=== PATIENT | male | born 1980 | race Caucasian/White ===

== ENCOUNTER 2017-05-12 22:24 | Emergency (ER) | payer OTHER ==
[~2017-05-12] VITALS: Ht 154.9 cm; Wt 79.4 kg
[~2017-05-12 22:24] MED LIST: ANOTHER DIABETIC MED; BACTRIM DS 8001 TA1 PO; CEPHALEXIN500 M1 PO; CLARITIN10 MG PO; CLEOCIN150 MG PO; CLINDAMYCIN HC300 MG PO; CLINDAMYCIN150 MG PO; CORDROL20 MG PO; HUMALOG100 U/ML SC; HUMALOG100 UNIT/2 SQ; IBU800 MG PO; KEFLEX500 MG PO; LANTUS100 U/ML SC; LISINOPRIL10 MG PO; METFORMIN HCL1000 MG PO; METFORMIN500 MG PO; Metformin Hydr500 MG PO; NKHM PO; PERIDEX 480 ML480 ML PO; PHENERGAN W/DM120 ML PO; PRAVACHOL10 MG PO; PREDNICOT10 MG PO; TESSALON PERLE100 M1 PO; TRAMADOL HCL50 MG PO; TYLENOL W/CODEI1 TA2 PO; ULTRAM50 MG PO; VOLTAREN50 M1 PO; ZITHROMAX Z PA250 MG PO; ZOFRAN ODT4 MG SL; ZOFRAN4 MG PO; ZYRTEC10 M1 PO; [UNRECOGNIZED DRUG - REMARK]
[2017-05-12] MEDS ORDERED: CLINDAMYCIN HC300 MG PO (22:38)
[2017-05-12] MEDS ORDERED: ANAPROX DS550 MG PO (22:38)
== END 2017-05-12 22:42 | disposition home or self-care (01) ==
LOC: ED 22:24
DX: K08.89 Other specified disorders of teeth and supporting structures (principal); I10 Essential (primary) hypertension; F17.200 Nicotine dependence, unspecified, uncomplicated; Z88.0 Allergy status to penicillin; Z79.899 Other long term (current) drug therapy

== ENCOUNTER → 2017-06-14 | Outpatient (CLI) | payer OTHER ==
[~2017-06-14] MED LIST changes: +ANAPROX DS550 MG PO
[2017-06-15 07:07] LABS: HEPATITIS C VIRUS ANTIBODY >11.0 s/co (0.0-0.9)
== END | disposition home or self-care (01) ==
LOC: LAB 11:30
PROVIDERS: Family Medicine
DX: R94.5 Abnormal results of liver function studies (principal)

== ENCOUNTER 2017-08-29 12:57 | Emergency (ER) | payer OTHER ==
[~2017-08-29] VITALS: Wt 72.6 kg
[2017-08-29] MEDS ORDERED: CLINDAMYCIN HC300 MG PO (15:15)
== END 2017-08-29 15:29 | disposition home or self-care (01) ==
LOC: ED 12:57
DX: K04.7 Periapical abscess without sinus (principal); F17.200 Nicotine dependence, unspecified, uncomplicated; Z79.899 Other long term (current) drug therapy; Z88.0 Allergy status to penicillin

== ENCOUNTER 2018-05-24 21:29 | Inpatient (IN) | payer OTHER ==
[~2018-05-24] VITALS: Ht 180.3 cm; Wt 66.3 kg
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
[2018-05-24 21:30] VITALS: BP 156/107
[2018-05-24 21:39] LABS: BILIRUBIN NEGATIVE (NEGATIVE); BLOOD NEGATIVE (NEGATIVE); CLARITY CLEAR (CLEAR); COLOR YELLOW (YELLOW); GLUCOSE 3+ (NEGATIVE); KETONE NEGATIVE (NEGATIVE); LEUKO ESTERASE NEGATIVE (NEGATIVE); NITRITE NEGATIVE (NEGATIVE); PH 5.5 (5.0-9.0); SPECIFIC GRAVITY <= 1.005 (1.005-1.030); UROBILINOGEN 0.2 E.U./dl (0.2-1.0)
[2018-05-24 21:49] LABS: URINE AMPHETAMINES < 1000 (1000ng/ml); URINE BARBITURATES < 200 (200ng/ml); URINE BENZODIAZEPINES < 200 (200ng/ml); URINE CANNABINOIDS (THC) < 50 (50ng/ml); URINE COCAINE < 300 (300ng/ml); URINE METHADONE < 300 (300ng/ml); URINE OPIATES > 300 (300ng/ml)
[2018-05-24 21:51] LABS: BACTERIA TRACE; RBC 0-2 rbc/hpf (0-2)
[2018-05-24 21:52] LABS: URINE PHENCYCLIDINE < 25 (25ng/ml)
[2018-05-24 22:13] LABS: BASO % 0.2 % (0.0-1.0); EOS % 0.4 % (1.0-4.0); HEMATOCRIT 40.4 % (42.0-52.0); HEMOGLOBIN 13.7 g/dl (14.0-18.0); LYMPH # 1.4 10*3/uL (1.3-4.4); LYMPH % 13.6 % (27.0-41.0); MEAN CELL VOLUME 87.6 fl (80.0-94.0); MEAN CORPUSCULAR HGB 29.7 pg (27.0-31.0); MEAN CORPUSCULAR HGB CONC 33.9 g/dl (33.0-37.0); MEAN PLATELET VOLUME 9.5 fl (9.6-12.3); MONO # 1.2 10*3/uL (0.1-1.0); MONO % 11.6 % (3.0-9.0); NEUT # 7.7 10*3/uL (2.3-7.9); NEUT % 73.7 % (47.0-73.0); PLATELET COUNT AUTOMATED 185 10*3/uL (130-400); RED BLOOD COUNT 4.61 10*6/uL (4.50-5.90); RED CELL DISTRI WIDTH 13.1 % (0-14.5); WHITE BLOOD COUNT 10.4 10*3/uL (4.8-10.8)
[2018-05-24 22:17] LABS: ABG BASE EXCESS -1.7 mmol/L (-2.0-2.0); ABG HCO3 22.6 mmol/l (22-26); ABG O2 SATURATION 95.4 % (95-97); ARTERIAL BLOOD GAS PCO2 39.4 mmHg (35-45); ARTERIAL BLOOD GAS PH 7.378 (7.35-7.45); ARTERIAL BLOOD GAS PO2 84.4 mmHg (80-90)
[2018-05-24 22:23] LABS: ACT PARTIAL THROMBO TIME 21.3 SECONDS (20.8-31.5)
[2018-05-24 22:30] LABS: ALBUMIN 3.2 gm/dl (3.1-4.5); ALKALINE PHOSPHATASE 334 U/L (45-117); BUN 10 mg/dl (7-24); CHLORIDE 97 mmol/L (98-107); CREATININE 0.91 mg/dL (0.70-1.30); POTASSIUM 3.3 mmol/L (3.5-5.1); SGOT/AST 443 IU/L (3-35); SODIUM 132 mmol/L (136-145); TOTAL PROTEIN 8.1 gm/dL (6.4-8.2)
[2018-05-24 22:35] LABS: SGPT/ALT 1283 U/L (12-78); TROPONIN I < 0.015 ng/ml (<0.045)
[2018-05-24 22:38] VITALS: BP 144/102
[2018-05-24 23:14] VITALS: BP 144/105
[2018-05-25 00:45] VITALS: BP 140/95
[2018-05-25 00:50] VITALS: BP 133/79
[2018-05-25 08:00] VITALS: BP 116/80
[2018-05-25 12:00] VITALS: BP 114/74
[2018-05-25 16:00] VITALS: BP 129/51
[2018-05-25 20:00] VITALS: BP 139/96
[2018-05-26] VITALS: BP 141/84
[2018-05-26 06:37] LABS: BASO % 0.3 % (0.0-1.0); EOS # 0.2 10*3/uL (0.0-0.4); EOS % 2.6 % (1.0-4.0); HEMATOCRIT 37.7 % (42.0-52.0); HEMOGLOBIN 12.7 g/dl (14.0-18.0); LYMPH # 1.4 10*3/uL (1.3-4.4); LYMPH % 24.7 % (27.0-41.0); MEAN CELL VOLUME 87.9 fl (80.0-94.0); MEAN CORPUSCULAR HGB 29.6 pg (27.0-31.0); MEAN CORPUSCULAR HGB CONC 33.7 g/dl (33.0-37.0); MEAN PLATELET VOLUME 11.1 fl (9.6-12.3); MONO # 0.7 10*3/uL (0.1-1.0); MONO % 12.2 % (3.0-9.0); NEUT # 3.4 10*3/uL (2.3-7.9); PLATELET COUNT AUTOMATED 198 10*3/uL (130-400); RED BLOOD COUNT 4.29 10*6/uL (4.50-5.90); RED CELL DISTRI WIDTH 13.5 % (0-14.5); WHITE BLOOD COUNT 5.7 10*3/uL (4.8-10.8)
[2018-05-26 07:37] VITALS: BP 146/96
[2018-05-26 07:39] LABS: BUN 11 mg/dl (7-24); CHLORIDE 107 mmol/L (98-107); CREATININE 0.71 mg/dL (0.70-1.30); POTASSIUM 4.1 mmol/L (3.5-5.1); SODIUM 139 mmol/L (136-145)
[2018-05-26 08:00] VITALS: BP 147/96
[2018-05-26 12:00] VITALS: BP 138/84
[2018-05-26 16:00] VITALS: BP 136/86
[2018-05-26] MEDS ORDERED: NICODERM CQ1 EAC2 T (17:01)
[2018-05-26] MEDS ORDERED: LANTUS SOL100 UNIT/1 SC (17:01)
== END 2018-05-26 17:42 | disposition home or self-care (01) | DRG 917 ==
LOC: ED 21:29 → EDHOLD 23:13 → ICCU 05-25 00:05 → 4E 05-25 13:26
PROVIDERS: Internal Medicine; Student in an Organized Health Care Education/Training Program
DX: T38.3X1A Poisoning by insulin and oral hypoglycemic [antidiabetic] drugs, accidental (unintentional), initial encounter (principal); E11.10 Type 2 diabetes mellitus with ketoacidosis without coma; E11.40 Type 2 diabetes mellitus with diabetic neuropathy, unspecified; E78.2 Mixed hyperlipidemia; I10 Essential (primary) hypertension; F17.210 Nicotine dependence, cigarettes, uncomplicated; Z79.4 Long term (current) use of insulin; Z79.899 Other long term (current) drug therapy; Z88.0 Allergy status to penicillin; Z91.14 Patient's other noncompliance with medication regimen; Y92.89 Other specified places as the place of occurrence of the external cause; Z71.6 Tobacco abuse counseling

== ENCOUNTER → 2020-10-17 | Outpatient (CLI) | payer OTHER ==
[~2020-10-17] MED LIST changes: +AMARYL1 M1 PO; +Amitriptyline H10 MG PO; +GLUCOPHAGE500 M1 PO; +LANTUS SOL100 UNIT/1 SC; +MAVYRET 100-401 EACH PO; +NEURONTIN600 MG PO; +NICODERM CQ1 EAC2 T; +NORCO 5-325 TA1 EACH PO; +TRIPHROCAPS SOFT1 MG PO; +VITAMIN D-32000 UNI1 PO
== END | disposition home or self-care (01) ==
LOC: COVID19 12:59
PROVIDERS: ATTEND Internal Medicine
DX: Z20.828 Contact with and (suspected) exposure to other viral communicable diseases (principal)